=== PATIENT | female | born 1985 | race Caucasian/White ===

== ENCOUNTER 2023-05-30 15:22 | Emergency (ER) | payer BC ==
[~2023-05-30] VITALS: Ht 175.3 cm; Wt 100.7 kg
[2023-05-30] MEDS ORDERED: VITAMIN C100 MG (15:53)
[2023-05-30] MEDS ORDERED: MAGNESIUM400 M1 PO (15:54)
[2023-05-30] MEDS ORDERED: ONDANSETRON ODT8 MG PO ×2 (15:55→17:29)
[2023-05-30] MEDS ORDERED: [UNRECOGNIZED DRUG - OTHER] (15:55)
[2023-05-30 16:47] LABS: INFLUENZA B NAA NEGATIVE (NEGATIVE); RESPIRATORY SYNCYTIAL VIR NAA NEGATIVE (NEGATIVE)
[2023-05-30] MEDS ORDERED: VENTOLIN HFA18 GM INH (17:29)
[2023-05-30] MEDS ORDERED: TAMIFLU75 MG PO (17:29)
[2023-05-30] MEDS ORDERED: ACETAMINOPHEN 500 MG TAB PO ONE (17:30)
[2023-05-30] MEDS ORDERED: ONDANSETRON 4 MG TAB ODT SL ONE (17:30)
[2023-05-30 17:45] VITALS: BP 122/69
== END 2023-05-30 17:46 | disposition home or self-care (01) ==
LOC: ED 15:22
PROVIDERS: Emergency Medicine
DX: O99.512 Diseases of the respiratory system complicating pregnancy, second trimester (principal); J10.1 Influenza due to other identified influenza virus with other respiratory manifestations; Z3A.20 20 weeks gestation of pregnancy; Z79.899 Other long term (current) drug therapy
CPT/HCPCS: 87502; 99284; A9270; U0002

== ENCOUNTER 2023-09-29 08:34 | Inpatient (IN) | payer OTHER, BC ==
[~2023-09-29] VITALS: Ht 170.2 cm; Wt 107.5 kg
[~2023-09-29 08:34] MED LIST: MAGNESIUM400 M1 PO; ONDANSETRON ODT8 MG PO; TAMIFLU75 MG PO; VENTOLIN HFA18 GM INH; VITAMIN C100 MG; [UNRECOGNIZED DRUG - OTHER]
[2023-10-05] MEDS ORDERED: LACTATED RINGER'S 2,000 ML IV PRN (05:00)
[2023-10-05] MEDS ORDERED: LACTATED RINGER'S 1,000 ML IV SCH ×2 (05:00→07:56)
[2023-10-05] MEDS ORDERED: OXYTOCIN 10 UNITS/ML VIAL ONE (05:58)
[2023-10-05] MEDS ORDERED: ondansetron HCL 4 MG/2 ML VIAL ONE (05:58)
[2023-10-05] MEDS ORDERED: METOCLOPRAMIDE HCL 10 MG/2 ML SDV ONE (05:58)
[2023-10-05] MEDS ORDERED: FAMOTIDINE 20 MG/ 2 ML VIAL ONE (05:59)
[2023-10-05] MEDS ORDERED: ePHEDrine sulfate 50 MG/ML AMP ONE (05:59)
[2023-10-05] MEDS ORDERED: LIDOCAINE HCL 2% 5 ML SDV ONE (06:00)
[2023-10-05] MEDS ORDERED: SODIUM CHLORIDE 0.9% 40 ML IV ONE (06:00)
[2023-10-05] MEDS ORDERED: BUPIVACAINE 0.75% IN DEXTROSE 2 ML AMP ONE (06:00)
[2023-10-05] MEDS ORDERED: DEXAMETHASONE SOD PHOS 4 MG/ML VIAL ONE (06:00)
[2023-10-05] MEDS ORDERED: Ropivacaine HCl 0.5% 30 ML VIAL ONE (06:00)
[2023-10-05] MEDS ORDERED: MORPHINE SULFATE 1 MG/ML VIAL ONE (06:02)
[2023-10-05 06:05] LABS: AMPHETAMINES, URINE NEGATIVE (NEGATIVE); BARBITURATES, URINE NEGATIVE (NEGATIVE); BENZODIAZEPINE, URINE NEGATIVE (NEGATIVE); BUPRENORPHINE, URINE NEGATIVE (NEGATIVE); CANNABINOID, URINE NEGATIVE (NEGATIVE); COCAINE, URINE NEGATIVE (NEGATIVE); ECSTASY, URINE NEGATIVE (NEGATIVE); FENTANYL, URINE NEGATIVE (NEGATIVE); METHADONE, URINE NEGATIVE (NEGATIVE); OPIATES, URINE NEGATIVE (NEGATIVE); OXYCODONE, URINE NEGATIVE (NEGATIVE); PHENCYCLIDINE, URINE NEGATIVE (NEGATIVE)
[2023-10-05] MEDS ORDERED: TRANEXAMIC ACID IN NACL,ISO-OS 0 ML IV ONE (06:06)
[2023-10-05 06:08] LABS: HEMATOCRIT 37.7 % (35.0-50.0); HEMOGLOBIN 12.7 g/dL (12.0-18.0); MCH 31.8 (27-36); MCHC 33.6 g/dl (30-36); MCV 94.6 fl (81-99); RBC 3.99 M/ul (4.3-5.7); RDW 13.8 (10.5-15.0)
[2023-10-05] MEDS ORDERED: CEFAZOLIN SODIUM 2 GM/20 ML SYR ONE (06:11)
[2023-10-05 06:24] VITALS: BP 113/61
[2023-10-05 06:44] LABS: ABO O; ANTIBODY SCREEN NEGATIVE; RH POSITIVE
[2023-10-05] MEDS ORDERED: SOD+POT BICARB/CITRIC ACID 2 EA TABLET.EFF PO SCH (07:00)
[2023-10-05] MEDS ORDERED: CEFAZOLIN SODIUM 2 GM/20 ML SYR IV SCH (07:00)
[2023-10-05] MEDS ORDERED: KETAMINE in NS 50 MG/5 ML SYR ONE (07:32)
[2023-10-05] MEDS ORDERED: MIDAZOLAM HCL 2 MG/2 ML VIAL ONE (07:32)
[2023-10-05] MEDS ORDERED: LACTATED RINGER'S 1,000 ML IV ONE ×3 (07:39)
[2023-10-05] MEDS ORDERED: PROCHLORPERAZINE EDISYLATE 10 MG/2 ML VIAL IV PRN ×3 (07:45→08:00)
[2023-10-05] MEDS ORDERED: IBLOOD GLUCOSE TEST STRIP 1 EA TEST VI PRN (07:45)
[2023-10-05] MEDS ORDERED: fentaNYL citrate 100 MCG/2 ML VIAL IV PRN (07:45)
[2023-10-05] MEDS ORDERED: ondansetron HCL 4 MG/2 ML VIAL IV PRN ×2 (07:45→08:00)
[2023-10-05] MEDS ORDERED: droPERidol 5 MG/2 ML VIAL IV PRN (07:45)
[2023-10-05] MEDS ORDERED: NALOXONE HCL 0.4 MG SYR IV PRN ×2 (07:45→08:00)
[2023-10-05] MEDS ORDERED: fentaNYL citrate 50 MCG/ML SDV IV PRN (07:45)
[2023-10-05] MEDS ORDERED: MORPHINE SULFATE 10 MG/ML VIAL IV PRN (07:45)
[2023-10-05] MEDS ORDERED: METOCLOPRAMIDE HCL 10 MG/2 ML SDV IV PRN ×2 (07:45→08:00)
[2023-10-05] MEDS ORDERED: KETOROLAC TROMETHAMINE 30 MG/ML VIAL IV PRN (08:00)
[2023-10-05] MEDS ORDERED: HYDROCODONE/ACETA 5/325 TAB PO PRN (08:00)
[2023-10-05] MEDS ORDERED: diphenhydrAMINE HCL 50 MG/ML VIAL IV PRN (08:00)
[2023-10-05] MEDS ORDERED: MORPHINE SULFATE 4 MG/ML VIAL IV PRN (08:00)
[2023-10-05] MEDS ORDERED: OXYCODONE HCL 5 MG TAB PO PRN (08:00)
[2023-10-05] MEDS ORDERED: KETOROLAC TROMETHAMINE 30 MG/ML VIAL IV SCH (08:00)
[2023-10-05] MEDS ORDERED: diphenhydrAMINE HCL 25 MG CAP PO PRN (08:00)
[2023-10-05] MEDS ORDERED: OXYTOCIN/0.9 % SODIUM CHLORIDE 500 ML IV SCH (08:00)
[2023-10-05] MEDS ORDERED: PROMETHAZINE HCL 25 MG SUPP PR PRN (08:00)
[2023-10-05] MEDS ORDERED: PROMETHAZINE HCL 25 MG TAB PO PRN (08:00)
[2023-10-05] MEDS ORDERED: bisacodyL 10 MG SUPP PR PRN (08:00)
--- NOTE | 2023-10-05 08:16 | NUR ---
10/05/23 0816 Naomie Forbes 0805-PATIENT AWAKE ARRIVED TO ROOM 104 FOR RECOVERY. RA 98% RR EVEN. SR. LR WITH 30 PITOCIN INFUSING TO RIGHT HAND CDI. FUNDUS 1 BELOW UMBILICUS FIRM LIGHT RUBRA DRAINAGE TO DAVON PAD. BROWNLEE CATHETER DRAINING YELLOW URINE. GLUCOSE LEVEL 106. SPINAL LEVEL L1 0810-PATIENT AWAKE WANTING TO TURN TO SIDE EDUCATED ABOUT LAYING ON BACK. HOB SLIGHTLY ELEVATED. WHEN RN ASKED ABOUT PAIN REPORTS "FEELS LIKE I GOT KICKED BY A HORSE" WHEN RN ASSESSES FUNDUS. TAP BLOCKS COMPLETED IN OR. PATIENTS FACE ITCHY. 0815-PATIENT AWAKE HOLDING BABY FBC RN CHECKING BABY GLUCOSE. DAD AT BEDSIDE.
[2023-10-05] MEDS ORDERED: fentaNYL citrate 100 MCG/2 ML VIAL ONE (08:37)
[2023-10-05 08:53] VITALS: BP 109/55
[2023-10-05] MEDS ORDERED: SENNOSIDES/DOCUSATE 1 EA TAB PO SCH (09:00)
[2023-10-05] MEDS ORDERED: SIMETHICONE 125 MG TABLET CHEWABLE PO SCH (11:00)
[2023-10-05] MEDS ORDERED: ENOXAPARIN SODIUM 40 MG/0.4 ML SYR SUB-Q SCH (21:00)
[2023-10-06 05:38] LABS: HEMOGLOBIN 10.3 g/dL (12.0-18.0); MCH 32.6 (27-36); MCHC 34.3 g/dl (30-36); RBC 3.16 M/ul (4.3-5.7); RDW 13.8 (10.5-15.0)
[2023-10-06] MEDS ORDERED: IBUPROFEN 800 MG TAB PO SCH ×3 (06:00→14:00)
[2023-10-06] MEDS ORDERED: SOD+POT BICARB/CITRIC ACID 2 EA TABLET.EFF PO SCH (07:00)
[2023-10-06] MEDS ORDERED: CEFAZOLIN SODIUM 2 GM/20 ML SYR IV SCH (07:00)
--- NOTE | 2023-10-06 07:13 | PR ---
[facility] [address] [place], [place] [address] Signed PP Progress Notes Datetime Report Generated by CPN: 10/06/2023 07:13 SUBJECTIVE: [id number] Pain: Within Normal Limits Nausea/Vomiting: Denies Flatus: Yes Vital Signs: [id number] Vital Signs: Reviewed; Within Normal Limits EXAM: Ongoing Cardiovascular: Normal Respiratory: Normal Abdomen/Uterus: Abnormal Lochia: Normal Vulva/Perineum: Not Done Breasts: Not Done CVA Tenderness: Not Done Extremities: Abnormal Incision: Normal Progress: Normal Exam Comments: Abdomen with active BS. Fundus firm, NT @ U-2. 1+ swelling LE H/H 10.3/30, plat 13.2, plat 296k IMPRESSION/PLAN/PROCEDURES: [id number] Impression: Normal Progression Other Plans: ambulate, shower Procedures: None Progress Notes: Doing well. Will increase activity today. Signing Physician: Chasity Miller MD Copies: ~ *Electronically Signed* 10/06/23712 CHASITY MILLER MD PATIENT NAME: FRANKSON,ISABELLA ASHALE PROGRESS NOTE DATE OF : 89 PHYSICIAN: CHASITY MILLER MD RPT #: [id number] REPORT IS CONFIDENTIAL AND NOT TO BE RELEASED WITHOUT AUTHORIZATION
[2023-10-06] MEDS ORDERED: METOCLOPRAMIDE HCL 10 MG/2 ML SDV IV PRN (08:00)
[2023-10-06] MEDS ORDERED: ondansetron HCL 4 MG/2 ML VIAL IV PRN (08:00)
[2023-10-06] MEDS ORDERED: VARICELLA VACCINE LIVE/PF 0.5 ML VIAL SUB-Q SCH (09:00)
[2023-10-06] MEDS ORDERED: diphenhydrAMINE HCL 25 MG CAP PO PRN (17:00)
--- NOTE | 2023-10-07 11:22 | PR ---
[facility] [address] [place], [place] [address] Signed PP Progress Notes Datetime Report Generated by DELMA: 10/07/2023 11:22 SUBJECTIVE: [id number] Pain: Within Normal Limits Nausea/Vomiting: Denies Flatus: Yes Bowel Movement: Yes Vital Signs: [id number] Vital Signs: Reviewed; Within Normal Limits EXAM: Ongoing Cardiovascular: Not Done Respiratory: Not Done Abdomen/Uterus: Normal Lochia: Normal Vulva/Perineum: Not Done Breasts: Not Done CVA Tenderness: Not Done Extremities: Normal Incision: Normal Progress: Normal Exam Comments: Abdomen with active BS. Fundus firm, NT @ U-2. 1+ swelling LE H/H 10.3/30, plat 13.2, plat 296k IMPRESSION/PLAN/PROCEDURES: [id number] Impression: Normal Progression Plan: Discharge Other Plans: ambulate, shower Procedures: None Progress Notes: S: 37 yo s/p primary section for hx of uterine surgery. POD #2. Doing well. Denies FRENCH, CP, SOB, F/C, N/V, RUQ pain, changes in vision, vaginal discharge. Tolerating regular diet, ambulating, voiding on own, pain controlled. O: AFVSS Abd: Soft, appropriately TTP. Fundus firm and below umbilicus. Incision C/D/I without erythema or drainage. Berwick in place. Musc: [place]. A/P: 37 yo s/p primary LTCS. POD#2. Doing well. Meeting all hospital *Electronically Signed* 10/07/23 1122 MORALES GRAMAJO MD PATIENT NAME: ISABELLA CROWDER PROGRESS NOTE DATE OF : 89 PHYSICIAN: MORALES GRAMAJO MD RPT #: [id number] REPORT IS CONFIDENTIAL AND NOT TO BE RELEASED WITHOUT AUTHORIZATION [address] [address] Signed lilestones. Will discharge home today. Signing Physician: Morales Gramajo MD Copies: ~ *Electronically Signed* 10/07/23 1122 MORALES GRAMAJO MD PATIENT NAME: ISABELLA CROWDER PROGRESS NOTE DATE OF : 89 PHYSICIAN: MORALES GRAMAJO MD RPT #: [id number] REPORT IS CONFIDENTIAL AND NOT TO BE RELEASED WITHOUT AUTHORIZATION
--- NOTE | 2023-10-10 07:12 | OR ---
[facility] [address] [place], [place] [address] Signed DATE OF OPERATION: 10/05/2023 SURGEON: Chasity Miller MD SUPERVISOR CONDITIONING YARD: Jose Michel MD PREOPERATIVE DIAGNOSES: 38 week , prior uterine surgery. POSTOPERATIVE DIAGNOSES: 38 week , prior uterine surgery, delivered. PROCEDURE: Primary section with low segment transverse uterine incision. ANESTHESIA: Spinal. ESTIMATED BLOOD LOSS: 500 mL. DRAINS: Kraus catheter. INDICATIONS AND FINDINGS: The patient is a 37-year-old female 5, para 3, SAB 1, who was admitted at 38 weeks for primary section given her history of prior Essure removal with reimplantation of her tubes into the uterine fundus. At the time of surgery, she was delivered of a little girl via lower segment transverse uterine incision as a complete breech with Apgars of 8 and 9 and weight of 8 pounds 1 ounces. The uterus was very thin near the implantation sites of the tubes. The placenta and ovaries appeared normal. DESCRIPTION OF PROCEDURE: The patient was prepped and draped in the supine position. A Pfannenstiel skin incision was made, carried down through the fascia. The incision was extended laterally. The inferior and superior fascial flaps were then created. Muscles were bluntly divided and the peritoneum opened sharply and the incision extended bluntly. The David retractor was then placed. The uterine incision was made at the upper aspect of the peritoneal reflection and the baby was delivered with the above findings and handed off Electronically Signed By: CHASITY MILLER MD 10/10/23 0712 PATIENT NAME: ISABELLA CROWDER OPERATIVE REPORT DATE OF : 89 REPORT #: [id number] PHYSICIAN: CHASITY MILLER MD [facility] REPORT IS CONFIDENTIAL AND NOT TO BE RELEASED WITHOUT AUTHORIZATION [facility] [address] [place], [place] [address] Signed to the pediatric staff in attendance. The placenta was expressed and the uterus explored with a lap tape assuring no remaining fragments. The very thin area at the fundus was identified at this point. The edges of the incision were identified and closed with two layers using 0 Monocryl. The first layer was a running locking stitch and the second was a vertical imbricating stitch. Bleeding points on the peritoneum were controlled with cautery. The abdomen was then irrigated and inspected and good hemostasis was noted. The peritoneum was then brought together after removal of the retractor and closed with running suture of 3-0 Vicryl. The muscles reapproximated with interrupted sutures of 0 Vicryl. Bleeding points on the muscles were controlled with cautery. The fascia was closed from each angle to the midline with a running suture of 0 Vicryl. The subcu space was irrigated and bleeding points controlled with cautery. The deep space was closed with a running suture of 3-0 Vicryl. The skin was closed with jesus. All sponge and needle counts were correct. She tolerated the procedure well and was taken to the recovery room in good condition. Chasity Miller MD PJW/DAR /[id number] Copies: ~ Electronically Signed By: CHASITY MILLER MD 10/10/23 0712 PATIENT NAME: ISABELLA CROWDER OPERATIVE REPORT DATE OF : 89 REPORT #: [id number] PHYSICIAN: CHASITY MILLER MD PCP: TAB MCCARTY REPORT IS CONFIDENTIAL AND NOT TO BE RELEASED WITHOUT AUTHORIZATION
== END 2023-10-07 11:35 | disposition home or self-care (01) | DRG 788 ==
LOC: FBC 10-05 05:03
PROVIDERS: Obstetrics & Gynecology; ADMIT Obstetrics & Gynecology; ATTEND Obstetrics & Gynecology
PROC: 10D00Z1 Extraction of Products of Conception, Low, Open Approach (ICD-10-PCS; principal; 2023-10-05 07:00)
DX: O80 Encounter for full-term uncomplicated delivery (principal); Z37.0 Single live birth; Z3A.38 38 weeks gestation of pregnancy
CPT/HCPCS: 01961; 36415; 76942; 80307; 85027; 86850; 86900; 86901; 90716; A9270; J0690; J1100; J1200; J1650; J1885; J2001; J2250; J2274; J2405; J2590; J2765; J2795; J3010; J3490; J7121